=== PATIENT | female | born 1965 | race Two or more races ===

== ENCOUNTER 2017-08-25 13:33 | Outpatient (CLI) | payer OTHER | END 2017-08-25 13:39 | disposition home or self-care (01) | LOC: LAB 13:33 → EKG 13:33 | DX: D17.1 Benign lipomatous neoplasm of skin and subcutaneous tissue of trunk (principal); Z01.810 Encounter for preprocedural cardiovascular examination ==

== ENCOUNTER 2017-09-11 04:45 | Day surgery (SDC) | payer OTHER ==
[~2017-09-11 04:45] MED LIST: ALTACE10 MG PO; TOPROL XL50 M1 PO
[2017-09-11] MEDS ORDERED: ULTRACET PO (10:39)
[2017-09-11] MEDS ORDERED: KEFLEX500 MG PO (10:39)
== END 2017-09-11 11:40 | disposition home or self-care (01) ==
LOC: CIR.AMB 04:45
DX: D23.5 Other benign neoplasm of skin of trunk (principal); D17.1 Benign lipomatous neoplasm of skin and subcutaneous tissue of trunk